=== PATIENT | female | born 1970 | race Caucasian/White ===

== ENCOUNTER 2025-03-02 12:07 | Emergency (ER) | payer OTHER ==
[~2025-03-02] VITALS: Ht 157.5 cm; Wt 94.9 kg
[2025-03-02] MEDS ORDERED: ondansetron HCL 4 MG/2 ML VIAL IV ONE (12:45)
[2025-03-02] MEDS ORDERED: HYDROmorphone HCL 1 MG/ML SYR IV ONE (12:45)
[2025-03-02] MEDS ORDERED: SODIUM CHLORIDE 0.9% 1,000 ML IV ONE (12:45)
[2025-03-02 13:00] LABS: BASOPHILS 0.4 % (0.1-1.2); EOSINOPHILS 2.2 % (0.7-5.8); HEMATOCRIT 45.9 % (34.1-44.9); LYMPHOCYTES 15.4 % (19.3-51.7); MCH 29.7 PG (25.6-32.2); MCHC 32.7 g/dL (32.2-35.5); MCV 90.9 fL (79.4-94.8); MONOCYTES 5.7 % (4.7-12.5); NEUTROPHILS 75.8 % (34.0-71.1); PLATELET COUNT 299 K/uL (182-369); RBC 5.05 M/uL (3.93-5.22)
[2025-03-02 13:21] LABS: ALBUMIN 3.7 g/dL (3.4-5.0); ANION GAP 12.8 (7-21); BILIRUBIN, TOTAL 0.3 mg/dL (0.2-1.0); BUN/CREATININE RATIO 18.98 (6.0-28.6); CALCIUM 8.9 mg/dL (8.5-10.1); CREATININE, SERUM 0.79 mg/dL (0.55-1.02); POTASSIUM 3.8 mmol/L (3.5-5.1); PROTEIN, TOTAL 7.4 g/dL (6.4-8.2)
[2025-03-02] MEDS ORDERED: ONDANSETRON ODT4 MG PO (15:22)
[2025-03-02] MEDS ORDERED: NAPROSYN500 MG PO (15:22)
[2025-03-02 15:30] VITALS: BP 111/70
== END 2025-03-02 15:30 | disposition home or self-care (01) ==
LOC: ED 12:07
PROVIDERS: Emergency Medicine
DX: R51.9 Headache, unspecified (principal); Z88.2 Allergy status to sulfonamides
CPT/HCPCS: 36415; 70450; 80053; 85025; 96374; 96375; 99284-25; J1171; J2405; J7030